=== PATIENT | female | born 1975 | race American Indian/Alaskan Native ===

== ENCOUNTER 2018-08-19 16:53 | Emergency (ER) | payer BC ==
[2018-08-19 17:07] VITALS: BMI 27.2
[2018-08-19 17:08] VITALS: RESP 18; TEMP 98.2
--- NOTE | 2018-08-19 17:45 | ED PDOC ---
Arrival/HPI - General Chief Complaint: Female Genitourinary Time Seen by Provider: 08/19/18 17:00 Historian: Patient - History of Present Illness Narrative History of Present Illness (Text): 08/19/18 17:42 42-year-old female complaining of vaginal bleeding since August 05, patient states that for the first week the bleeding started it was very light bleeding, and then on the second week it became heavy and now for the past week it has been light bleeding associated with lower abdominal pain for the past 2 days. Patient states that she went to [facility] prior to arrival, had a urine test and a urine test done, does not know the results of either test, was advised to come to the emergency room for further evaluation. Patient admits to nausea and a headache as well. Otherwise patient has no vomiting, fever, urinary symptoms, constipation. Of note, patient adds that she had a termination of in July 2017, after which she was put on the Depo shot which she took 1 shot for 3 months, afterwards did not follow-up with her [employer] and discontinued the Depo shot as per her PMDs advice who advised her to stop taking the Depo shot as she is a smoker and it can increase her risk for a blood clot. PMD Carter [employer] Yasir Past Medical History - Infectious Disease Hx of Infectious Diseases: None - Cardiac Hx Hypertension: Yes - Psychiatric Hx Substance Use: No Family/Social History Family/Social History: No Known Family HX Smoking Status: Light Smoker < 10 Cigarettes Daily Hx Alcohol Use: Yes Frequency of alcohol use: Socially Hx Substance Use: No Allergies/Home Meds Allergies/Adverse Reactions: Allergies latex Allergy (Verified 08/19/18 17:07) SWELLING Sulfa (Sulfonamide Antibiotics) Allergy (Verified 08/19/18 17:07) SWELLING Home Medications: Home Meds Medication Instructions Recorded Confirmed Losartan Potassium [Cozaar] 1 tab PO DAILY 08/19/18 08/19/18 Review of Systems - Review of Systems Constitutional: absent: Fatigue, Fevers Respiratory: absent: SOB, Cough Cardiovascular: absent: Chest Pain, Palpitations Gastrointestinal: Abdominal Pain, Nausea. absent: Constipation, Vomiting Genitourinary Female: absent: Dysuria, Frequency Musculoskeletal: absent: Arthralgias, Back Pain, Neck Pain Skin: absent: Rash, Pruritis Neurological: Headache. absent: Dizziness Physical Exam Vital Signs Temp Pulse Resp BP Pulse Ox 08/19/18 17:07 98.2 F 79 18 155/95 H 98 Temperature: Afebrile Blood Pressure: Hypertensive Pulse: Regular Respiratory Rate: Normal Appearance: Positive for: Well-Appearing, Non-Toxic, Comfortable Pain Distress: Mild Mental Status: Positive for: Alert and Oriented X 3 - Systems Exam Head: Present: Atraumatic, Normocephalic Pupils: Present: PERRL Extroacular Muscles: Present: EOMI Conjunctiva: Present: Normal Mouth: Present: Moist Mucous Membranes Neck: Present: Normal Range of Motion Respiratory/Chest: Present: Clear to Auscultation, Good Air Exchange. No: Respiratory Distress, Accessory Muscle Use Cardiovascular: Present: Regular Rate and Rhythm, Normal S1, S2. No: Murmurs Abdomen: Present: Tenderness (+diffuse abdominal tenderness with guarding). No: Distention, Peritoneal Signs Back: Present: Normal Inspection Upper Extremity: Present: Normal Inspection. No: Cyanosis, Edema Lower Extremity: Present: Normal Inspection. No: Edema Neurological: Present: GCS=15, CN II-XII Intact, Speech Normal Skin: Present: Warm, Dry, Normal Color. No: Rashes Psychiatric: Present: Alert, Oriented x 3, Normal Insight, Normal Concentration Medical Decision Making ED Course and Treatment: 08/19/18 19:45 Plan : - IV - Labs - UA, urine cx - Toradol - Reassess / disposition - TV US Labs reviewed : wbc 15, k 3.2, ua +UTI. Patient given KCl PO. Rocephin 1 g IV ordered for UTI. 08/19/18 20:20 US Transvaginal, reviewed by radiologist: IMPRESSION: No suspicious mass or free fluid collection. Incidental 1 cm cyst left ovary. Clinical correlation advised. Electronically signed on Aug 19, 2018 7:47:12 PM EDT by: Ja Alcocer M.D., Certified by [facility], Diagnostic Radiology 08/19/18 20:30 On reevaluation, patient reports improvement of pain, denies any nausea. On exam, patient remains awake alert and oriented 3 in no acute distress, laying in bed comfortably talking on her cell phone. Abdomen soft and nontender, without guarding or rebound. Diagnostic results discussed with the patient in great detail. Diagnosis of UTI discussed with the patient. Rocephin 1 g IV ordered for UTI. Patient now admits that a few days ago she did have some urinary symptoms and had to take [id number] Azo. Advised to follow up with primary care physician and her [employer] in 1-2 days without fail. Advised to take medication as prescribed. Return to the emergency room at any time for any new or worsening symptoms. Patient states she fully agrees with and understands discharge instructions. States that she agrees with the plan and disposition. Verbalized and repeated discharge instructions and plan. I have given the patient opportunity to ask any additional questions. 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 Disposition/Present on Arrival - Present on Arrival Any Indicators Present on Arrival: No History of DVT/PE: No History of Uncontrolled Diabetes: No Urinary Catheter: No History of Decub. Ulcer: No History Surgical Site Infection Following: None - Disposition Have Diagnosis and Disposition been Completed?: Yes Diagnosis: Abdominal pain, UTI (urinary tract infection) Disposition: HOME/ ROUTINE Disposition Time: 20:30 Patient Plan: Discharge Condition: STABLE Discharge Instructions (ExitCare): Acute Abdomen (Belly Pain), Adult (DC), Urinary Tract Infections in Adults Additional Instructions: Thank you for letting us take care of you today. You were treated for abdominal pain, UTI. The emergency medical care you received today was directed at your acute symptoms. If you were prescribed any medication, please fill it and take as directed. It may take several days for your symptoms to resolve. Return to the Emergency Department if your symptoms worsen, do not improve, or if you have any other problems. Please contact your doctor and your photograph printer in 2 days for re-evaluation and follow up. Bring any paperwork you were given at discharge with you along with any medi cations you are taking to your follow up visit. Our treatment cannot replace ongoing medical care by a primary care provider (PCP) outside of the emergency department. Thank you for allowing the [facility] team to be part of your care today. If you had an US: A Radiologist will review the ED reading if any change in treatment is needed we will contact you. If you had a urine culture: It will take several days for the results, if any change in treatment is needed we will contact you. Prescriptions: Nitrofurantoin Macrocrystals [Macrobid] 100 mg PO BID #14 cap Referrals: Carter,Mahesh Elaina, DNP, ASSOCIATE ACCOUNTANT [Primary Care Provider] - Follow up with primary Forms: [employer] (Portuguese), WORK NOTE
[2018-08-19] MEDS ORDERED: Sodium Chloride 0.9% 1,000 ML IV STA (18:02)
[2018-08-19 18:44] LABS: BASO # 0.02 K/mm3 (0.0-2.0); BASO % 0.1 % (0.0-3.0); EOS % 0.3 % (1.5-5.0); HEMOGLOBIN 10.4 g/dL (12.0-16.0); LYMPH # 2.8 (1.2-3.4); LYMPH % 18.5 % (22.0-35.0); MEAN CELL VOLUME 80.6 fl (80.0-105.0); MEAN CORPUSCULAR HEMOGLOBIN 25.8 pg (25.0-35.0); MEAN PLATELET VOLUME 10.5 fl (7.0-11.0); MONO % 6.6 % (1.0-6.0); RBC 4.03 10^6/uL (3.5-6.1); RED CELL DISTRIBUTION WIDTH 17.7 % (11.5-14.5); WHITE BLOOD COUNT 15.1 10^3/uL (4.5-11.0)
[2018-08-19 18:54] LABS: ALB/GLOB RATIO 1.2 (1.1-1.8); ALBUMIN 4.2 g/dL (3.0-4.8); ALT/SGPT 15 U/L (7-56); AST/SGOT 40 U/L (14-36); BLOOD UREA NITROGEN 10 mg/dL (7-21); GFR NON-AFRICAN AMERICAN > 60
[2018-08-19 18:57] LABS: INR 1.14; PARTIAL THROMBOPLASTIN TIME 30.8 Seconds (26.9-38.3); PROTHROMBIN TIME 12.6 SECONDS (9.4-12.5)
[2018-08-19 18:59] LABS: URINE BILIRUBIN NEGATIVE (NEGATIVE); URINE BLOOD MODERATE (NEGATIVE); URINE GLUCOSE (UA) NEGATIVE (NEGATIVE); URINE LEUKOCYTE ESTERASE MODERATE Leu/uL (NEGATIVE); URINE PROTEIN NEGATIVE mg/dL (<30 mg/dL); URINE UROBILINOGEN 0.2 E.U./dL (<1 E.U./dL)
[2018-08-19] MEDS ORDERED: Potassium Chloride 20 mEq/15 ml LIQ UD PO STA (19:07)
[2018-08-19 19:10] LABS: URINE APPEARANCE CLEAR (CLEAR)
[2018-08-19 19:33] LABS: URINE BACTERIA TRACE /hpf; URINE RBC 20 - 25 /hpf (0-2); URINE WBC 15 - 20 /hpf (0-6)
[2018-08-19 19:34] LABS: URINE AMORPHOUS SEDIMENT SMALL /hpf
[2018-08-19] MEDS ORDERED: cefTRIAXone 1 gm 1 GM/100 ML BAG IVPB STA (20:18)
[2018-08-19 21:40] VITALS: BP 137/87; PULSE 85; O2SAT 100
--- NOTE | 2018-08-20 10:21 | US ---
Date of service: 08/19/2018 HISTORY: Vaginal bleeding. LMP 07/08/2018. COMPARISON: None available. TECHNIQUE: Transvaginal only. Real -time technique with 2D, duplex and color Doppler FINDINGS: UTERUS: Measures 3.7 x 4.1 x 7.3 cm. Normal in size and appearance. No fibroid or other mass lesion seen. ENDOMETRIUM: Measures 5.0 mm in diameter. No ultrasound findings to suggest gestational sac, fluid, debris, mass or polyp or other pathologic process within the endometrium. CERVIX: No cervical abnormality identified. RIGHT OVARY: Measures 1.5 x 1.3 x 2.3 cm. No solid mass. Normal flow. LEFT OVARY: Measures 1.6 x 2.4 x 3.2 cm. No solid mass. Normal flow. Solitary cyst 7 x 9 mm. An incidental finding. FREE FLUID: No significant free fluid noted. OTHER FINDINGS: None. IMPRESSION: Unremarkable pelvic ultrasound. Concordant findings (preliminary report) provided by [employer].
== END 2018-08-19 21:40 | disposition home or self-care (01) ==
LOC: ED 16:53 → MERGE 16:53 → ED 21:40
DX: N39.0 Urinary tract infection, site not specified (principal); R10.9 Unspecified abdominal pain; I10 Essential (primary) hypertension; F17.210 Nicotine dependence, cigarettes, uncomplicated
CPT/HCPCS: 76830; 80053; 81001; 81025; 85025; 85610; 85730; 86850; 86900; 87086; 96374; 99284; J0696; J1885; J7030

== ENCOUNTER 2018-09-27 13:53 | Outpatient (CLI) | payer BC | END 2018-09-27 13:54 | disposition home or self-care (01) | LOC: LAB 13:53 ==